=== PATIENT | female | born 1980 | race Caucasian/White ===

== ENCOUNTER 2016-10-11 16:23 | Emergency (ER) | payer BC ==
[2016-10-11 18:49] VITALS: BP 146/99
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
[2016-10-11] MEDS ORDERED: Albuterol/Ipratropium NEB.SOL* Albuterol 2.5 MG/Ipratropium 0.5 MG 3 ML INH ONE (18:56)
== END 2016-10-11 19:47 | disposition home or self-care (01) ==
LOC: UCEAST 16:23
DX: J45.901 Unspecified asthma with (acute) exacerbation (principal); I10 Essential (primary) hypertension
CPT/HCPCS: 87651; 99212; A9270-GY; G0463

== ENCOUNTER 2018-04-02 17:46 | Emergency (ER) | payer BC ==
[2018-04-02 18:51] VITALS: BP 158/106
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
== END 2018-04-02 20:25 | disposition home or self-care (01) ==
LOC: UCEAST 17:46
DX: S70.12XA Contusion of left thigh, initial encounter (principal); W55.12XA Struck by horse, initial encounter; Y92.9 Unspecified place or not applicable
CPT/HCPCS: 99211; G0463